=== PATIENT | male | born 1965 | race Caucasian/White ===

== ENCOUNTER 2018-06-08 18:54 | Emergency (ER) | payer BC ==
[~2018-06-08] VITALS: Ht 185.4 cm; Wt 126.6 kg
--- NOTE | 2018-06-08 19:20 | ER.PDOC ---
General Chief Complaint: Requesting Medical Care Stated Complaint: COUGH,HEADACHE Time seen by MD: 19:14 Source: patient Exam Limitations: no limitations History of Present Illness Initial Comments Pt with cough with greenish expectoration since Wednesday, no fever Timing/Duration: gradual Severity: moderate Associated Symptoms: productive cough, hurts to breath Worsen By: deep breathing Prior symptoms/Treatment: Similar symptoms previous Respiratory: see HPI All Other Systems: Reviewed and Negative Physical Exam General Appearance: alert, no distress Eye: eyes nml inspection, lids & conjunct. nml, PERRL, no nystagmus Ear: ear nml Nose: nose nml Throat: pharynx nml, airway nml Neck: nml inspection, supple Respiratory: no resp.distress, breath sounds nml Abdomen: non-tender, no organomegaly CVS: reg rate & rhythm, heart sounds nml Skin: color nml, no rash, warm/dry Extremities: non-tender, nml ROM, no pedal edema NEURO/PSYCH: oriented x 3, CN's nml as tested, motor nml, sensation nml, mood/ affect nml Departure Time of Disposition: 20:13 Disposition: 01 HOME, SELF-CARE Impression: Primary Impression: Bronchitis Condition: Stable Patient Instructions: Acute Bronchitis, [id number] Referrals: PCP,UNKNOWN (PCP) PRIMARY CARE PROVIDER Duration or Time Spent with Pa: 15 BOBBI العلي MD Jun 08, 2018 19:20
[2018-06-08 19:25] VITALS: BP 117/72
--- NOTE | 2018-06-08 20:11 | DIREP ---
PROCEDURE:CHEST 1 VIEW COMPARISON:None. INDICATIONS:Cough, expectoration FINDINGS: LUNGS/PLEURA:Suboptimal inspiration with low lung volumes. No significant pulmonary parenchymal abnormalities. No effusions. VASCULATURE:Normal. Unremarkable pulmonary vasculature. CARDIAC:Normal. No cardiac silhouette abnormality or cardiomegaly. MEDIASTINUM:Normal. No visible mass or adenopathy. BONES:Normal. No fracture or visible bony lesion. OTHER:Negative. CONCLUSION:Suboptimal inspiration. No acute cardiac or pulmonary disease. Dictated by: Magdaleno Dickinson M.D. on 06/08/2018 at 08:08 PM
[2018-06-08 20:29] VITALS: BP 117/72
== END 2018-06-08 20:20 | disposition home or self-care (01) ==
LOC: ER 18:54
DX: J40 Bronchitis, not specified as acute or chronic (principal)
CPT/HCPCS: 71045; 99283